=== PATIENT | female | born 1965 | race Caucasian/White ===

== ENCOUNTER 2019-06-18 07:57 | Inpatient (IN) | payer OTHER ==
[2019-06-18] MEDS ORDERED: FENTANYL CITR 100 MCG/2 ML ONE (08:16)
[2019-06-18 08:22] LABS: Absolute Lymphocytes (CBC) 2.3 K/uL (0.7-4.9); Basophils % 0.6 % (0-1.3); Hematocrit 45.9 % (36.0-45.0); Lymphocytes % 30.3 % (15.3-44.8); MPV 11.4 fL (7.6-11.3); RBC Red Blood Cell Count 4.97 M/uL (3.86-4.86)
[2019-06-18 08:24] LABS: Protime INR 1.6
--- NOTE | 2019-06-18 08:32 | RAD REPORT ---
EXAM DESCRIPTION: RAD - Chest Single View - 06/18/2019 8:27 am CLINICAL HISTORY: epigastric pain;Chest pain Chest pain. COMPARISON: No comparisons FINDINGS: Portable technique limits examination quality. Mild interstitial pulmonary edema suspected. The heart is mildly enlarged in size. No displaced fract ures. IMPRESSION: Mild CHF.
[2019-06-18 08:40] LABS: ALT/SGPT 185 U/L (12-78); AST/SGOT 130 U/L (15-37); Albumin 3.6 g/dL (3.4-5.0); Alkaline Phosphatase 107 U/L (45-117); BUN Blood Urea Nitrogen 15 mg/dL (7-18); Bicarbonate 25 mmol/L (21-32); Bilirubin Direct 0.5 mg/dL (0-0.2); Bilirubin Total 1.6 mg/dL (0.2-1.0); Glucose Level 114 mg/dL (74-106); Lipase 84 U/L (73-393); NT PRO-BNP 4327 pg/mL (<125); Potassium 4.5 mmol/L (3.5-5.1); Sodium Level 143 mmol/L (136-145); Troponin (Emerg Dept Use Only) < 0.02 ng/mL (0.0-0.045)
[2019-06-18] MEDS ORDERED: METOPROLOL TAR 25 MG TAB ONE (08:53)
[2019-06-18] MEDS ORDERED: ASPIRIN 81 MG CHEWABLE TABLET ONE (08:53)
--- NOTE | 2019-06-18 09:30 | RAD REPORT ---
EXAM DESCRIPTION: US - Abdomen Exam Limited - 06/18/2019 8:59 am CLINICAL HISTORY: EPIGASTRIC PAIN COMPARISON: No comparisons FINDINGS: The gallbladder demonstrates no gallstones. The gallbladder wall is thickened measuring up to 5 mm. Trace pericholecystic fluid also noted. The common bile duct is normal measuring 4 mm. The liver demonstrates no findings of intrahepatic biliary dilatation. IMPRESSION: Gallbladder wall thickening and trace pericholecystic fluid is seen without evidence of a gallstone. This may be secondary to hepatitis, hypoalbuminemia or chronic cholecystitis.
[2019-06-18] MEDS ORDERED: CEFTRIAXONE/SWI 1gm 1 GM/10 ML SYR ONE (11:04)
--- NOTE | 2019-06-18 12:01 | RAD REPORT ---
EXAM DESCRIPTION: MRICholangiogram06/18/2019 11:38 am CLINICAL HISTORY: Abdominal pain COMPARISON: June 18, 2019 ultrasound TECHNIQUE: Magnetic resonance cholangiogram was performed. 3D Mip reconstruction performed FINDINGS: A filling defect within the gallbladder is not seen. Gallbladder wall is thickened with mi nimal pericholecystic fluid The biliary tree is normal caliber without a filling defect. Pancreatic duct is normal caliber Small right pleural effusion IMPRESSION: Thickened gallbladder wall with minimal pericholecystic fluid. This may indicate acalcul ous cholecystitis. Hypoalbuminemia can also result in this appearance
--- NOTE | 2019-06-18 12:11 | ER ---
Nurse's Notes [facility] Name: Michelle Kelly Age: 54 yrs Sex: Female : 1965 Arrival Date: 06/18/2019 Time: 07:58 Bed 4 Private MD: Diagnosis: Cholecystitis Presentation: 06/18 08:08 Presenting complaint: Patient states: epigastric pain radiating up into chest and to iw left shoulder since yesterday, got bad last night, not getting any better today, also feels SOB, pain described as pressure 10/10, gets better when lying back, c/o nausea no vomiting, hx of afib. 08:08 Acuity: MILLIE 2 iw 08:09 Transition of care: patient was not received from another setting of care. Onset of sv symptoms was June 17, 2019. Risk Assessment: Do you want to hurt yourself or someone else? Patient reports no desire to harm self or others. Initial Sepsis Screen: Does the patient meet any 2 criteria? No. Patient's initial sepsis screen is negative. Does the patient have a suspected source of infection? No. Patient's initial sepsis screen is negative. Care prior to arrival: None. 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 - Social history:: Smoking status: Patient/guardian denies using tobacco. - Ebola Screening: : Patient negative for fever greater than or equal to 101.5 degrees Fahrenheit, and additional compatible Ebola Virus Disease symptoms Patient denies exposure to infectious person Patient denies travel to an Ebola-affected area in the 21 days before illness onset No symptoms or risks identified at this time. Screenin:08 Abuse screen: Denies threats or abuse. Denies injuries from another. Nutritional sv screening: No deficits noted. Tuberculosis screening: No symptoms or risk factors identified. Fall Risk None identified. Assessment: 08:05 Also complains of shortness of breath. General: Appears in no apparent distress. sv uncomfortable, well developed, Behavior is cooperative, appropriate for age, anxious. Pain: Complains of pain in anterior aspect of left upper chest, xyphoid area, mid-sternal area and epigastric area Pain does not radiate. Pain currently is 8 out of 10 on a pain scale. Quality of pain is described as pressure, Pain began 1 day ago. Is continuous, Noted to be guarding, Also complains of strain on relationship. Neuro: Level of Consciousness is awake, alert, obeys commands, Oriented to person, place, time, situation, Moves all extremities. Full function Gait is steady. Cardiovascular: Patient's skin is warm and dry. Pulses are 3+ in right radial artery and left radial artery Rhythm is atrial fibrillation with rapid ventricular response. Respiratory: Airway is patent Respiratory effort is even, labored, Respiratory pattern is symmetrical, tachypnea. Derm: Skin is pink, warm \T\ dry. Musculoskeletal: Range of motion: intact in all extremities. 08:55 Reassessment: Patient appears in no apparent distress at this time. No changes from sv previously documented assessment. Patient and/or family updated on plan of care and expected duration. Pain level reassessed. Patient is alert, oriented x 3, equal unlabored respirations, skin warm/dry/pink. 09:08 Reassessment: US complete. sv 10:25 Reassessment: Patient appears in no apparent distress at this time. Patient and/or sv family updated on plan of care and expected duration. Pain level reassessed. Patient is alert, oriented x 3, equal unlabored respirations, skin warm/dry/pink. 11:48 Reassessment: Patient is alert, oriented x 3, equal unlabored respirations, skin aa5 warm/dry/pink. Pt back from CT, pt notified of wait time for results. . 13:00 Reassessment: Patient appears in no apparent distress at this time. Patient and/or sv family updated on plan of care and expected duration. Pain level reassessed. Patient is alert, oriented x 3, equal unlabored respirations, skin warm/dry/pink. 13:59 Reassessment: Nurse to call back for report. sv 14:20 Reassessment: Patient appears in no apparent distress at this time. Patient and/or sv family updated on plan of care and expected duration. Pain level reassessed. Patient is alert, oriented x 3, equal unlabored respirations, skin warm/dry/pink. Vital Signs: 08:14 BP 119 / 92; Pulse 134; Resp 20 S; Pulse Ox 98% on R/A; Weight 90.72 kg; Height 5 ft. 4 iw in. (162.56 cm); Pain 8/10; 08:54 BP 122 / 106; Pulse 116; Resp 17; Pulse Ox 98% on 2 lpm NC; sv 09:00 Pain 3/10; sv 09:32 BP 120 / 86; Pulse 115; Resp 17; Pulse Ox 97% on 2 lpm NC; sv 10:25 BP 120 / 79; Pulse 104; Resp 19; Pulse Ox 98% on 2 lpm NC; sv 12:05 BP 116 / 98; Pulse 128; Resp 17; Pulse Ox 98% ; sv 13:00 BP 136 / 99; Pulse 130; Resp 18; Pulse Ox 98% on 2 lpm NC; sv 13:49 BP 120 / 86; Pulse 117; Resp 23; Pulse Ox 95% on 2 lpm NC; sv 08:14 Body Mass Index 34.33 (90.72 kg, 162.56 cm) iw ED Course: 07:58 Patient arrived in ED. as 07:59 Hakeem Shaw PA is PHCP. cp 07:59 Daniel Adler MD is Attending Physician. cp 08:05 Inserted saline lock: 20 gauge in right forearm, using aseptic technique. Blood sv collected. Flushed right forearm with 5 ml normal saline. Oxygen administration via nasal cannula \T\ 2L/min. 08:05 Patient has correct armband on for positive identification. Placed in gown. Bed in low sv position. Call light in reach. Adult w/ patient. monitoring tech on. Pulse ox on. NIBP on. Door closed. Head of bed elevated. 08:05 Arm band placed on. sv 08:06 Oanh Valdovinos, JOVAN is Primary Nurse. sv 08:09 EKG done, by marketing technology specialist. reviewed by Hakeem ARANDA. at1 08:13 Triage completed. iw 08:18 X-ray(s) taken. sv 08:20 XRAY Chest (1 view) Sent. sv 08:24 XRAY Chest (1 view) In Process Unspecified. EDMS 09:00 US Abdomen Limited: RUQ/epigastric area In Process Unspecified. EDMS 11:32 Cholangiogram In Process Unspecified. EDMS 12:10 Jennifer Harmon MD is Hospitalizing Provider. cp 13:49 No provider procedures requiring assistance completed. Patient admitted, IV remains in sv place. intact. Administered Medications: 08:18 Drug: fentaNYL (PF) 25 mcg {Note: RASS1.} Route: IVP; Site: right forearm; sv 09:00 Follow up: Pain 3/10 Adult; Response: No adverse reaction; RASS: Alert and Calm (0) sv 08:54 Drug: Metoprolol 25 mg Route: PO; sv 09:36 Follow up: Response: No adverse reaction sv 08:54 Drug: Aspirin Chewable Tablet 324 mg Route: PO; sv 09:36 Follow up: Response: No adverse reaction sv 10:57 CANCELLED (Physician Discretion): Rocephin - (cefTRIAXone) 1 grams IVPB once over 30 cp mins; (mix in 50 mL NS) 11:48 Drug: Rocephin 1 grams Route: IV; Rate: calculated rate; Site: right forearm; aa5 11:50 Follow up: Response: No adverse reaction; IV Status: Completed infusion; IV Intake: 10mlsv 14:15 CANCELLED (not needed): fentaNYL (PF) 25 mcg IVP once; RASS on ADMIN: Combtv4, Very sv Agttd3, Agttd2, Rstlss1, AlertClm0, Drwsy-1, Lt Sdtn-2, Mod Sdtn-3, Dp Sdtn-4, UnArsble-5 Intake: 11:50 IV: 10ml; Total: 10ml. sv Outcome: 12:11 Decision to Hospitalize by Provider. cp 14:19 Admitted to Tele accompanied by tech, via wheelchair, room 232, with oxygen, with sv chart, Report called to Carolyn ALDANA 14:19 Condition: stable 14:19 Instructed on the need for admit. 14:45 Patient left the ED. sv Signatures: Dispatcher [employer] EDMS Oanh Valdovinos RN RN sv Martinez, Amelia as Williams, Irene, RN RN Tika Smith RN RN aa5 Amira Che, fall internship EKG Tat1 Hakeem Shaw PA PA cp Corrections: (The following items were deleted from the chart) 17:22 15:15 Patient left the ED. sv sv
--- NOTE | 2019-06-18 12:12 | EDPHYS ---
Physician Documentation [facility] Name: Michelle Kelly Age: 54 yrs Sex: Female : 1965 Arrival Date: 06/18/2019 Time: 07:58 Bed 4 Private MD: ED Physician Daniel Adler HPI: 06/18 08:15 This 54 yrs old Female presents to ER via Wheelchair with complaints of Chest cp Pain. 08:15 The patient presents with abdominal pain in the epigastric area. cp 08:15 Onset: The symptoms/episode began/occurred yesterday, and became worse today. The cp symptoms radiate to chest. Associated signs and symptoms: Pertinent positives: nausea, Pertinent negatives: blood in stools, constipation, diarrhea, dysuria, fever, headache, palpitations, active vomiting. 08:15 The symptoms are described as pressure. Modifying factors: The symptoms are alleviated cp by nothing, the symptoms are aggravated by movement. Severity of pain: in the emergency department the pain is a 8 / 10. 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 - Social history:: Smoking status: Patient/guardian denies using tobacco. - Ebola Screening: : Patient negative for fever greater than or equal to 101.5 degrees Fahrenheit, and additional compatible Ebola Virus Disease symptoms Patient denies exposure to infectious person Patient denies travel to an Ebola-affected area in the 21 days before illness onset No symptoms or risks identified at this time. ROS: 08:20 Constitutional: Negative for body aches, chills, fever, poor PO intake. cp 08:20 Eyes: Negative for injury, pain, redness, and discharge. cp 08:20 ENT: Negative for drainage from ear(s), ear pain, sore throat, difficulty swallowing, difficulty handling secretions. 08:20 Cardiovascular: Positive for chest pain, Negative for edema, palpitations. 08:20 Respiratory: Positive for shortness of breath, Negative for cough, wheezing. 08:20 Abdomen/GI: Positive for abdominal pain, nausea, of the epigastric area, Negative for vomiting, diarrhea, constipation, black/tarry stool, rectal bleeding. 08:20 Back: Negative for pain at rest, pain with movement. 08:20 : Negative for urinary symptoms. 08:20 Skin: Negative for rash. 08:20 Neuro: Negative for altered mental status, dizziness, headache, numbness, syncope, weakness. 08:20 All other systems are negative. Exam: 08:15 ECG was reviewed by the Attending Physician. cp 08:25 Constitutional: The patient appears in no acute distress, alert, awake, cp non-diaphoretic, non-toxic, well developed, well nourished, uncomfortable. 08:25 Head/Face: Normocephalic, atraumatic. Eyes: Pupils equal round and reactive to light, cp extra-ocular motions intact. Lids and lashes normal. Conjunctiva and sclera are non-icteric and not injected. Cornea within normal limits. Periorbital areas with no swelling, redness, or edema. ENT: Nares patent. No nasal discharge, no septal abnormalities noted. Tympanic membranes are normal and external auditory canals are clear. Oropharynx with no redness, swelling, or masses, exudates, or evidence of obstruction, uvula midline. Mucous membranes moist. Neck: Trachea midline, no thyromegaly or masses palpated, and no cervical lymphadenopathy. Supple, full range of motion without nuchal rigidity, or vertebral point tenderness. No Meningismus. Chest/axilla: Normal chest wall appearance and motion. Nontender with no deformity. No lesions are appreciated. 08:25 Cardiovascular: Rate: tachycardic, Rhythm: irregularly irregular, Edema: is not appreciated, JVD: is not appreciated. 08:25 Respiratory: the patient does not display signs of respiratory distress, Respirations: normal, no use of accessory muscles, no retractions, no splinting, no tachypnea, labored breathing, is not present, Breath sounds: are clear throughout, no decreased breath sounds, no stridor, no wheezing. 08:25 Abdomen/GI: Inspection: abdomen appears normal, Bowel sounds: active, all quadrants, Palpation: soft, in all quadrants, severe abdominal tenderness, in the epigastric area, voluntary guarding, is elicited in the epigastric area. 08:25 Skin: no rash present. 08:25 Neuro: Orientation: to person, place \T\ time. Mentation: is normal, Cerebellar function: is grossly normal, Motor: moves all fours, strength is normal, Sensation: is normal. Vital Signs: 08:14 BP 119 / 92; Pulse 134; Resp 20 S; Pulse Ox 98% on R/A; Weight 90.72 kg; Height 5 ft. 4 iw in. (162.56 cm); Pain 8/10; 08:54 BP 122 / 106; Pulse 116; Resp 17; Pulse Ox 98% on 2 lpm NC; sv 09:00 Pain 3/10; sv 09:32 BP 120 / 86; Pulse 115; Resp 17; Pulse Ox 97% on 2 lpm NC; sv 10:25 BP 120 / 79; Pulse 104; Resp 19; Pulse Ox 98% on 2 lpm NC; sv 12:05 BP 116 / 98; Pulse 128; Resp 17; Pulse Ox 98% ; sv 13:00 BP 136 / 99; Pulse 130; Resp 18; Pulse Ox 98% on 2 lpm NC; sv 13:49 BP 120 / 86; Pulse 117; Resp 23; Pulse Ox 95% on 2 lpm NC; sv 08:14 Body Mass Index 34.33 (90.72 kg, 162.56 cm) iw MDM: 08:05 Patient medically screened. cp 08:30 Differential diagnosis: cholecystitis, Cholelithiasis, gastritis, gastroesophageal cp reflux disease, pancreatitis, Peptic Ulcer Disease, Perf. Duodenal Ulcer, Perf. Gastric Ulcer, acute PR. 09:41 Physician consultation: Justus Luu MD was called at 09:42, left message on voicemail. 09:50 Physician consultation: Justus Luu MD was contacted at 09:50, regarding consult, cp patient's condition, requests MRCP and if normal will consult on patient, otherwise if MRCP is unavailable, patient is to be transferred due to GI services being unavailable. 10:00 Data reviewed: vital signs, nurses notes, lab test result(s), EKG, radiologic studies, cp ultrasound. 12:09 Physician consultation: Jennifer Harmon MD was called at 12:10, was contacted at 12:10, regarding admission, to the telemetry unit. patient's condition. 06/18 08:06 Order name: Basic Metabolic Panel; Complete Time: 08:44 cp 06/18 08:44 Interpretation: Normal except: CL 110; GLUC 114; GFR 60. cp 06/18 08:06 Order name: CBC with Diff; Complete Time: 08:36 cp 06/18 08:36 Interpretation: Normal except: RBC 4.97; HGB 15.1; HCT 45.9; MPV 11.4. cp 06/18 08:06 Order name: LFT's; Complete Time: 08:44 cp 06/18 08:44 Interpretation: Normal except: AST 130; ALT 185; BILIT 1.6; BILID 0.5. cp 06/18 08:06 Order name: Magnesium; Complete Time: 08:44 cp 06/18 08:06 Order name: NT PRO-BNP; Complete Time: 08:44 cp 06/18 08:06 Order name: PT-INR; Complete Time: 08:44 cp 06/18 08:06 Order name: Troponin (emerg Dept Use Only); Complete Time: 08:44 cp 06/18 08:06 Order name: XRAY Chest (1 view); Complete Time: 08:36 cp 06/18 08:06 Order name: Lipase; Complete Time: 08:44 cp 06/18 08:45 Order name: US Abdomen Limited: RUQ/epigastric area; Complete Time: 09:35 cp 06/18 09:59 Order name: Cholangiogram; Complete Time: 12:07 EDMS 06/18 08:06 Order name: EKG; Complete Time: 08:08 cp 06/18 08:06 Order name: Cardiac monitoring; Complete Time: 08:07 cp 06/18 08:06 Order name: EKG - Nurse/Tech; Complete Time: 08:07 cp 06/18 08:06 Order name: IV Saline Lock; Complete Time: 08:07 cp 06/18 08:06 Order name: Labs collected and sent; Complete Time: 08:07 cp 06/18 08:06 Order name: O2 Per Protocol; Complete Time: 08:07 cp 06/18 08:06 Order name: O2 Sat Monitoring; Complete Time: 08:07 cp 06/18 09:49 Order name: NPO; Complete Time: 09:53 cp 06/18 09:49 Order name: Misc. Order; Complete Time: 09:54 cp EC:15 Rate is 132 beats/min. Rhythm is irregularly irregular. QRS interval is normal. QT cp interval is normal. T waves are Inverted in leads V2, V3. Interpreted by me. Reviewed by me. Administered Medications: 08:18 Drug: fentaNYL (PF) 25 mcg {Note: RASS1.} Route: IVP; Site: right forearm; sv 09:00 Follow up: Pain 3/10 Adult; Response: No adverse reaction; RASS: Alert and Calm (0) sv 08:54 Drug: Metoprolol 25 mg Route: PO; sv 09:36 Follow up: Response: No adverse reaction sv 08:54 Drug: Aspirin Chewable Tablet 324 mg Route: PO; sv 09:36 Follow up: Response: No adverse reaction sv 10:57 CANCELLED (Physician Discretion): Rocephin - (cefTRIAXone) 1 grams IVPB once over 30 cp mins; (mix in 50 mL NS) 11:48 Drug: Rocephin 1 grams Route: IV; Rate: calculated rate; Site: right forearm; aa5 11:50 Follow up: Response: No adverse reaction; IV Status: Completed infusion; IV Intake: 10mlsv 14:15 CANCELLED (not needed): fentaNYL (PF) 25 mcg IVP once; RASS on ADMIN: Combtv4, Very sv Agttd3, Agttd2, Rstlss1, AlertClm0, Drwsy-1, Lt Sdtn-2, Mod Sdtn-3, Dp Sdtn-4, UnArsble-5 Disposition: 15:45 Co-signature as Attending Physician, Daniel Adler MD I agree with the assessment and kdr plan of care. Disposition: 06/18/19 12:11 Hospitalization ordered by Jennifer Harmon for Inpatient Admission. Preliminary diagnosis is Cholecystitis. - Bed requested for Telemetry/MedSurg (Inpatient). - Status is Inpatient Admission. sv - Condition is Stable. - Problem is new. - Symptoms have improved. UTI on Admission? No Signatures: Dispatcher [employer] Oanh Guthrie RN RN sv Woody, Diana, RN RN dw Rittger, Kevin, MD MD [facility] Emily Roach RN RN Tika Smith RN RN aa5 Hakeem Shaw PA PA cp Corrections: (The following items were deleted from the chart) 10:57 10:45 Rocephin - (cefTRIAXone) 1 grams IVPB once over 30 mins; (mix in 50 mL NS) cp ordered. cp 10:57 10:45 Rocephin - (cefTRIAXone) 1 grams IVPB once over 30 mins; (mix in 50 mL NS) cp ordered. sv 13:46 12:11 Hospitalization Ordered by Jennifer Harmon MD for Inpatient Admission. Preliminary dw diagnosis is Cholecystitis. Bed requested for Telemetry/MedSurg (Inpatient). Status is Inpatient Admission. Condition is Stable. Problem is new. Symptoms have improved. UTI on Admission? No. cp 14:15 08:10 fentaNYL (PF) 25 mcg IVP once; RASS on ADMIN: Combtv4, Very Agttd3, Agttd2, sv Rstlss1, AlertClm0, Drwsy-1, Lt Sdtn-2, Mod Sdtn-3, Dp Sdtn-4, UnArsble-5 ordered. cp 14:15 14:15 fentaNYL (PF) 25 mcg IVP once; RASS on ADMIN: Combtv4, Very Agttd3, Agttd2, sv Rstlss1, AlertClm0, Drwsy-1, Lt Sdtn-2, Mod Sdtn-3, Dp Sdtn-4, UnArsble-5 ordered. sv 15:15 13:46 06/18/2019 12:11 Hospitalization Ordered by Jennifer Harmon MD for Inpatient sv Admission. Preliminary diagnosis is Cholecystitis. Bed requested for Telemetry/MedSurg (Inpatient). Status is Inpatient Admission. Condition is Stable. Problem is new. Symptoms have improved. UTI on Admission? No. dw
[2019-06-18] MEDS ORDERED: ONDANSETRON 4 MG/2 ML VIAL IV PRN (14:44)
[2019-06-18 15:08] VITALS: BMI 34.8
--- NOTE | 2019-06-18 15:30 | P.HP ---
Patient History Date of Service: 06/18/19 Reason for admission: Epigastric pain History of Present Illness: This is a 54-year-old female with past medical history of atrophic relation admitted for epigastric pain. Per patient, she started with sharp/pressure- like epigastric pain for the past 1- 2 days that has been progressively worsening. She describes it as a pressure and sharp like pain that starts in the epigastric region and radiates to the sides as well as into the chest sometimes . Patient states that she could not lay on her stomach or her left- sided as this made her pain worse. Food also exacerbated her pain. No alleviating factors. She does report small bowel movement this morning. Reports that this pain is associated with nausea. She denies any fevers, chills , headache, vision changes, diarrhea/constipation, shortness breath, or complaints. As the pain was getting worse, patient called her vocal artist because she thought this was secondary to her heart. She was told to come to the ER. In the pain did not improve therefore patient was read to the ER by her . In the ER, blood pressure was 119/92, heart rate of 134, respirations of 20, 90 % on room air. She has a BMI of 34.33. Her labs were fairly unremarkable except for elevated total bilirubin to 1.6, elevated diary bilirubin to 0.5 and elevated AST/and 130/185 respectively. Her pro BNP was also elevated to 4327. Her chest x-ray was consistent with mild CHF pattern. Her abdominal stone showed gallbladder wall thickening and trace pericholecystic fluid without any evidence of gallstones. MRCP was done, which showed thickened gallbladder, possibility of acalculous cholecystitis. Move in the ER, she received fentanyl , oral metoprolol, aspirin 325 mg along with Rocephin. That the time of my exam, she was alert oriented x3, in no acute distress and hemodynamically stable. Allergies No Known Allergies Allergy (Unverified 06/18/19 14:38) Home medications list reviewed: Yes Home Medications: Acetaminophen [Tylenol] 650 mg PO Q8HP PRN 06/18/19 Loratadine [Claritin] 10 mg PO DAILY PRN 06/18/19 Metoprolol Succinate [Toprol Xl] 25 mg PO TID 06/18/19 Rivaroxaban [Xarelto] 20 mg PO DAILY AT SUPPER 06/18/19 - Past Medical/Surgical History Has patient received pneumonia vaccine in the past: No Diabetic: No -: A-FIB -: Tubal Ligation -: Lt overian cyst removed - Social History Smoking Status: Never smoker Alcohol use: No CD- Drugs: No Caffeine use: No Place of Residence: Home Review of Systems 10-point ROS is otherwise unremarkable Physical Examination - Physical Exam General: Alert, In no apparent distress, Oriented x3 HEENT: Atraumatic, PERRLA, Mucous membr. moist/pink, EOMI, Sclerae nonicteric Neck: Supple, 2+ carotid pulse no bruit, No LAD, Without JVD or thyroid abnormality Respiratory: Clear to auscultation bilaterally, Normal air movement Cardiovascular: Regular rate/rhythm, Normal S1 S2 Gastrointestinal: Normal bowel sounds, Tenderness Musculoskeletal: No tenderness Integumentary: No rashes Neurological: Normal gait, Normal speech, Normal strength at 5/5 x4 extr, Normal tone, Normal affect Lymphatics: No axilla or inguinal lymphadenopathy - Studies Laboratory Data (last 24 hrs) 06/18/19 08:05: PT 18.5 H, INR 1.60 06/18/19 08:05: WBC 7.7, Hgb 15.1 H, Hct 45.9 H, Plt Count 155 06/18/19 08:05: Sodium 143, Potassium 4.5, BUN 15, Creatinine 0.97, Glucose 114 H, Magnesium 2.0, Total Bilirubin 1.6 H, AST 130 H, ALT 185 H, Alkaline Phosphatase 107, Lipase 84 Assessment and Plan - Problems (Diagnosis) (1) Epigastric pain Current Visit: Yes Status: Acute (2) Cholecystitis Current Visit: Yes Status: Acute Plan: Abdominal ultrasound and MRCP with evidence of thickened gallbladder wall and trace pericholecystic fluid without any evidence of gallstones, possibility of acalculous cholecystitis. -Keep NPO -Gentle hydration with IV fluids. Will avoid over hydration due to CHF pattern on chest x-ray. -general surgery consulted, recommendations appreciated. -hold anticoagulation in anticipation of surgery -monitor labs (3) Atrial fibrillation Current Visit: Yes Status: Acute Plan: Stable, will restart home medications- Toprol. Hold oral anticoagulation in anticipation for surgery. Qualifiers: Atrial fibrillation type: paroxysmal Qualified Code(s): I48.0 - Paroxysmal atrial fibrillation (4) Elevated LFTs Current Visit: Yes Status: Acute Plan: Likely secondary to cholecystitis. Will continue to monitor via labs. -if continues to be elevated, will go ahead and get hepatitis panel. (5) Obesity (BMI 30.0-34.9) Current Visit: No Status: Chronic - Plan DVT prophylaxis: Hold oral anticoagulation; SCDs GI prophylaxis: Protonix Diet: NPO Disposition: Pending symptomatic improvement surgical evaluation. Discharge Plan: Home Plan to discharge in: Greater than 2 days - Advance Directives Does patient have a Living Will: No Does patient have a Durable POA for Healthcare: No Time Spent Managing Pts Care (In Minutes): 55
[2019-06-18] MEDS ORDERED: FENTANYL CITR 100 MCG/2 ML IV PRN (15:33)
[2019-06-18] MEDS ORDERED: METOPROLOL XL 25 MG TAB PO SCH (16:00)
[2019-06-18] MEDS: METOPROLOL 25 MG PO SCH (22:11)
[2019-06-18 23:54] LABS: Urine Appearance CLEAR; Urine Bilirubin NEGATIVE (NEG); Urine Blood 3+ (NEG); Urine Color YELLOW; Urine Glucose NEGATIVE (NEG); Urine Protein NEGATIVE (NEG); Urine Urobilinogen 0.2 mg/dL (0.2-1.0); Urine pH 5.5 (5.0-7.0)
[2019-06-18 23:55] LABS: Urine Microscopic Reflex ORDER UMIC
[2019-06-19 00:48] LABS: Urine Bacteria <20 /HPF (<20); Urine Culture Reflex Order NOT NEEDED; Urine RBC <5 /HPF (NONE SEEN)
[2019-06-19 05:53] LABS: Albumin 3.2 g/dL (3.4-5.0); Bilirubin Total 1.2 mg/dL (0.2-1.0); Protein, Total 6.1 g/dL (6.4-8.2)
[2019-06-19 05:54] LABS: Absolute Lymphocytes (CBC) 2.1 K/uL (0.7-4.9); Basophils % 0.7 % (0-1.3); Hematocrit 41.1 % (36.0-45.0); Lymphocytes % 30.5 % (15.3-44.8); MPV 11.8 fL (7.6-11.3); RBC Red Blood Cell Count 4.46 M/uL (3.86-4.86)
[2019-06-19] MEDS: METOPROLOL 25 MG PO SCH ×3 (09:59→22:00)
--- NOTE | 2019-06-19 10:07 | P.PN ---
Subjective Date of Service: 06/19/19 Chief Complaint: Epigastric pain Subjective: No C/O voiced, Improving Patient seen and examined at bedside. Chart reviewed and case discussed with nursing staff and Dr. Luu. Patient not complaining of any pain this am. No acute events noted overnight. Review of Systems 10-point ROS is otherwise unremarkable Physical Examination - Vital Signs Temperature: 97.2 F Blood Pressure: 126/82 Pulse: 94 Respirations: 20 Pulse Ox (%): 98 - Physical Exam General: Alert, In no apparent distress, Oriented x3 HEENT: Atraumatic, PERRLA, EOMI Neck: Supple, JVD not distended Respiratory: Clear to auscultation bilaterally, Normal air movement Cardiovascular: Regular rate/rhythm, Normal S1 S2 Gastrointestinal: Normal bowel sounds, No tenderness Musculoskeletal: No tenderness Integumentary: No rashes Neurological: Normal speech, Normal tone, Normal affect Lymphatics: No axilla or inguinal lymphadenopathy Assessment And Plan - Current Problems (Diagnosis) (1) Epigastric pain Current Visit: Yes Status: Acute (2) Cholecystitis Current Visit: Yes Status: Acute Plan: Abdominal ultrasound and MRCP with evidence of thickened gallbladder wall and trace pericholecystic fluid without any evidence of gallstones, possibility of acalculous cholecystitis. -Symptoms improved. Will start CLD, advance as tolerated. If patient not tolerating PO, will consider surgical intervention tomorrow. -Gentle hydration with IV fluids. Will avoid over hydration due to CHF pattern on chest x-ray. -general surgery consulted, recommendations appreciated. -hold anticoagulation in anticipation of surgery -monitor labs (3) Atrial fibrillation Current Visit: Yes Status: Acute Plan: Stable, will restart home medications- Toprol. Hold oral anticoagulation in anticipation for surgery. Qualifiers: Atrial fibrillation type: paroxysmal Qualified Code(s): I48.0 - Paroxysmal atrial fibrillation (4) Elevated LFTs Current Visit: Yes Status: Acute Plan: Likely secondary to cholecystitis. Improving. -Will continue to monitor via labs. -if continues to be elevated, will go ahead and get hepatitis panel. (5) Obesity (BMI 30.0-34.9) Current Visit: No Status: Chronic - Plan DVT prophylaxis: Hold oral anticoagulation; SCDs GI prophylaxis: Protonix Diet: CLD, advance as tolerated. Disposition: Pending symptomatic improvement and possible surgical evaluation.
--- NOTE | 2019-06-19 12:15 | RAD REPORT ---
EXAM DESCRIPTION: RAD - Chest Single View - 06/19/2019 11:14 am CLINICAL HISTORY: sob Chest pain. COMPARISON: Chest Single View dated 06/18/2019 FINDINGS: Portable technique limits examination quality. The lungs are grossly clear. The heart is mildly enlarged in size. No displaced fractures. IMPRESSION: No acute intrathoracic process suspected.
[2019-06-19 21:26] VITALS: O2SAT 95
[2019-06-20 06:04] LABS: Absolute Lymphocytes (CBC) 2.2 K/uL (0.7-4.9); Basophils % 0.9 % (0-1.3); Hematocrit 43.6 % (36.0-45.0); Lymphocytes % 34.5 % (15.3-44.8); MPV 11.1 fL (7.6-11.3); RBC Red Blood Cell Count 4.69 M/uL (3.86-4.86)
[2019-06-20 06:22] LABS: Albumin 3.5 g/dL (3.4-5.0); Bilirubin Total 1.2 mg/dL (0.2-1.0); Potassium 3.5 mmol/L (3.5-5.1); Protein, Total 6.7 g/dL (6.4-8.2)
[2019-06-20] MEDS: METOPROLOL 25 MG PO SCH (07:53)
--- NOTE | 2019-06-20 08:43 | EKG ---
Test Date: 2019-06-18 Test Time: 08:07:43 Marine Plumber: LORENA MEASUREMENT RESULTS: Intervals: Rate: 132 NM: QRSD: 82 QT: 306 QTc: 453 [place]: P: NM: QRS: 23 T: 14 INTERPRETIVE STATEMENTS: Atrial fibrillation with rapid ventricular response Low voltage QRS ST & T wave abnormality, consider anterior ischemia or digitalis effect Abnormal ECG No previous ECG available for comparison Electronically Signed On 06-20-19 08:41:51 CDT by Ian Rosas
[2019-06-20] MEDS: ENOXAPARIN 100 MG/ML SYR SQ SCH ×2 (09:08→20:22)
--- NOTE | 2019-06-20 10:26 | CON ---
This a 54-year-old woman, Mrs. Kelly has been in atrial fibrillation for probably about 2 months. S he had been on metoprolol and Xarelto until she came into the hospital on Sunday. At that point, bot h those medicines were stopped. She was found to have acalculous cholecystitis. I am asked to see h er. She has been here already 48 hours and they were actually quite angry that it was not here soone r, although I was not notified until this morning by routine notification of consult method. The pat eyal has no previous history of heart disease. Her atrial fibrillation is new onset. She does not h ave diabetes or hypertension or dyslipidemia. She does not use tobacco. No illegal drugs. She has had a noninvasive workup for ischemic heart disease, valvular heart disease in my office, that is nor mal. Physical Examination: Vital Signs: 5 feet 4 inches, 196 pounds. HEENT: Normal. Lungs: Clear. Cardiac: Exam normal. Abdomen: Soft. Extremities: Mild edema. Distal pulses normal. Impression: The patient has atrial fibrillation. She has been anticoagulated long enough. We will give Lovenox now and tomorrow and we will plan on doing a cardioversion tomorrow. TYREE/ZONIA Voice ID: [id number] Report ID: [id number]
--- NOTE | 2019-06-20 10:48 | P.PN ---
Subjective Date of Service: 06/20/19 Chief Complaint: Epigastric pain Subjective: Improving Patient seen and examined at bedside. Chart reviewed and case discussed with nursing staff and Dr. Luu. Patient not complaining of any pain this am. No acute events noted overnight. Tolerating clear liquid diet. Review of Systems 10-point ROS is otherwise unremarkable Physical Examination - Vital Signs Temperature: 98.0 F Blood Pressure: 123/88 Pulse: 89 Respirations: 17 Pulse Ox (%): 97 - Physical Exam General: Alert, In no apparent distress, Oriented x3 HEENT: Atraumatic, PERRLA, EOMI Neck: Supple, JVD not distended Respiratory: Clear to auscultation bilaterally, Normal air movement Cardiovascular: Normal S1 S2, Irregular heart rate/rhythm Gastrointestinal: Normal bowel sounds, No tenderness Musculoskeletal: No tenderness Integumentary: No rashes Neurological: Normal speech, Normal tone, Normal affect Lymphatics: No axilla or inguinal lymphadenopathy Assessment And Plan - Current Problems (Diagnosis) (1) Epigastric pain Current Visit: Yes Status: Acute (2) Cholecystitis Current Visit: Yes Status: Acute Plan: Abdominal ultrasound and MRCP with evidence of thickened gallbladder wall and trace pericholecystic fluid without any evidence of gallstones, possibility of acalculous cholecystitis. She may have also passed a stone. -Symptoms improved. Will start CLD, advance as tolerated. She is tolerating a PO diet, and symptoms have improved. She may not need surgical intervention at this time. -Gentle hydration with IV fluids. -general surgery consulted, recommendations appreciated. -monitor labs (3) Atrial fibrillation Current Visit: Yes Status: Acute Plan: Cardiology consulted, recommendations appreciated. - Metoprolol discontinued, started sotalol and lovenox for anticoagulation -Plan for cardioversion tomorrow. Qualifiers: Atrial fibrillation type: paroxysmal Qualified Code(s): I48.0 - Paroxysmal atrial fibrillation (4) Elevated LFTs Current Visit: Yes Status: Acute Plan: Likely secondary to cholecystitis nvs passing a stone. Improving. -Will continue to monitor via labs. -if continues to be elevated, will go ahead and get hepatitis panel. (5) Obesity (BMI 30.0-34.9) Current Visit: No Status: Chronic - Plan DVT prophylaxis: Hold oral anticoagulation; SCDs GI prophylaxis: Protonix Diet: CLD, advance as tolerated. Disposition: Pending cardioversion tomorrow.
[2019-06-20 10:58] LABS: Platelet Estimate ADEQ; Platelets, Giant FEW; Urine White Blood Cell Casts 0
[2019-06-20 10:59] LABS: Blood Morphology Comment NOT SEEN (NOT SEEN)
[2019-06-20] MEDS ORDERED: METOPROLOL 25 MG PO SCH (14:00)
[2019-06-20] MEDS ORDERED: HOME MED 1 EA UNK PO SCH (14:00)
--- NOTE | 2019-06-20 14:23 | P.CNS ---
Date of Consult: 06/18/19 Chief Complaint: Epigastric pain, acute cholecystitis, Increase liver enzymes History of Present Illness: 54 y/o with 2 day h/o epigastric and RUW pain radiation to her back associated with nausea and bloating. No recent traveling out of the country , no family sick at home. Allergies No Known Allergies Allergy (Unverified 06/18/19 14:38) Home Medications: Acetaminophen [Tylenol] 650 mg PO Q8HP PRN 06/18/19 Loratadine [Claritin] 10 mg PO DAILY PRN 06/18/19 Metoprolol Succinate [Toprol Xl] 25 mg PO TID 06/18/19 Rivaroxaban [Xarelto] 20 mg PO DAILY AT SUPPER 06/18/19 - Past Medical/Surgical History Diabetic: No -: A-FIB -: Tubal Ligation -: Lt overian cyst removed - Social History Alcohol use: No CD- Drugs: No Caffeine use: No Place of Residence: Home Review of Systems General: Malaise ENT: Unremarkable Respiratory: Unremarkable Cardiovascular: As per HPI Gastrointestinal: Nausea, Abdominal Pain, Distention, As per HPI Genitourinary: Unremarkable Musculoskeletal: Unremarkable Integumentary: Unremarkable Physical Examination Temp Pulse Resp BP Pulse Ox 98.0 F 89 17 123/88 97 06/20/19 10:57 06/20/19 10:57 06/20/19 10:57 06/20/19 10:57 06/20/19 10:57 General: Alert, In no apparent distress, Oriented x3, Cooperative HEENT: PERRLA, EOMI Neck: Supple Respiratory: Normal air movement Gastrointestinal: Tenderness (RUQ, + [place]) Imagings Data: ultrasound discussed with pt MRCP discussed with pt Conclusions/Impression: cardiac clearence Lap vs open cholecystectomy options discussed with pt and which include but no limited to infection, bleeding, damage to adjacent structures, pancreatitis , bile leak VT even . This may not relieve any symptoms and she may need more than one surgical intervention. Is risk of surgery at this time benefit the risk afer cardiac evaluation, as an alternative, she may try abx and diet modification and do it electively if clinically pt improves. Pt fully explained. npo
[2019-06-20] MEDS: SOTALOL HCL 80 MG TAB PO SCH (17:36)
[2019-06-20] MEDS ORDERED: SOTALOL HCL 80 MG TAB PO SCH (18:00)
[2019-06-21 06:12] LABS: Absolute Lymphocytes (CBC) 2.6 K/uL (0.7-4.9); Hematocrit 40.8 % (36.0-45.0); Lymphocytes % 45.1 % (15.3-44.8); RBC Red Blood Cell Count 4.43 M/uL (3.86-4.86)
[2019-06-21] MEDS: SOTALOL HCL 80 MG TAB PO SCH ×2 (06:14→16:22)
[2019-06-21 06:27] LABS: Albumin 3.2 g/dL (3.4-5.0); Bilirubin Total 0.9 mg/dL (0.2-1.0); Potassium 3.9 mmol/L (3.5-5.1); Protein, Total 6.2 g/dL (6.4-8.2)
[2019-06-21] MEDS: ENOXAPARIN 100 MG/ML SYR SQ SCH (08:22)
[2019-06-21] MEDS ORDERED: MIDAZOLAM HCL 2 MG/2 ML INJ ONE (09:47)
[2019-06-21] MEDS ORDERED: FENTANYL CITR 100 MCG/2 ML ONE (09:54)
[2019-06-21 16:36] VITALS: BP 100/60; TEMP 97.8
[2019-06-21] MEDS ORDERED: RIVAROXABAN 20 MG TABLET PO SCH (17:00)
--- NOTE | 2019-06-21 20:47 | OP ---
Surgeon: Ian Rosas MD Procedure: Direct current cardioversion. Indication: Atrial fibrillation. Procedure In Detail: The patient gave us informed consent. She had been anticoagulated for 3 weeks with Xarelto, 36 hours with Lovenox. She had been treated with Betapace 80 mg twice a day. She was brought to the ICU fasting, sedated with Versed 12.5 mg was used, also 50 mcg of fentanyl. Anterior- posterior paddles were applied to the patient's chest. Three different shocks were given 200, 300, a nd 360 joules. The last one was successful in reverting her rhythm to sinus. Complications from the procedure none. TYREE/ZONIA Voice ID: [id number] Report ID: [id number]
--- NOTE | 2019-06-22 13:19 | P.DS ---
Admission Date: 06/18/19 Discharge Date: 06/21/19 Disposition: ROUTINE DISCHARGE Discharge Condition: GOOD Reason for Admission: Epigastric pain, acute cholecystitis, Increase liver enzymes Consultations: General surgery Cardiology Procedures: 06/21/2019: direct cardioversion - Problems (1) Epigastric pain Status: Acute (2) Cholecystitis Status: Acute (3) Atrial fibrillation Status: Acute Qualifiers: Atrial fibrillation type: paroxysmal Qualified Code(s): I48.0 - Paroxysmal atrial fibrillation (4) Elevated LFTs Status: Acute (5) Obesity (BMI 30.0-34.9) Status: Chronic Brief History of Present Illness: This is a 54-year-old female with past medical history of atrophic relation admitted for epigastric pain. Per patient, she started with sharp/pressure- like epigastric pain for the past 1- 2 days that has been progressively worsening. She describes it as a pressure and sharp like pain that starts in the epigastric region and radiates to the sides as well as into the chest sometimes . Patient states that she could not lay on her stomach or her left- sided as this made her pain worse. Food also exacerbated her pain. No alleviating factors. She does report small bowel movement this morning. Reports that this pain is associated with nausea. She denies any fevers, chills , headache, vision changes, diarrhea/constipation, shortness breath, or complaints. As the pain was getting worse, patient called her canvas worker because she thought this was secondary to her heart. She was told to come to the ER. In the pain did not improve therefore patient was read to the ER by her . In the ER, blood pressure was 119/92, heart rate of 134, respirations of 20, 90 % on room air. She has a BMI of 34.33. Her labs were fairly unremarkable except for elevated total bilirubin to 1.6, elevated diary bilirubin to 0.5 and elevated AST/and 130/185 respectively. Her pro BNP was also elevated to 4327. Her chest x-ray was consistent with mild CHF pattern. Her abdominal stone showed gallbladder wall thickening and trace pericholecystic fluid without any evidence of gallstones. MRCP was done, which showed thickened gallbladder, possibility of acalculous cholecystitis. Move in the ER, she received fentanyl , oral metoprolol, aspirin 325 mg along with Rocephin. That the time of my exam, she was alert oriented x3, in no acute distress and hemodynamically stable. Hospital Course: Patient was admitted for epigastric pain, ultrasound and MRCP with evidence of thickened gallbladder wall trace pericholecystic fluid without any evidence of gallstones. General surgery was consulted. She was kept NPO, with IV fluids. Her symptoms improved, she was able to tolerate clear liquid diet and therefore no emergent/urgent surgical intervention was planned at this time. Her anticoagulation was held in anticipation for surgery. Patient did develop atrial fibrillation with elevated heart rates. It seems that patient had a history of this prior and she is being followed up with cardiology and had a cardioversion planned this week as an outpatient. Since she was here, and no abdominal surgical intervention was planned, cardiology was consulted and patient underwent a cardioversion on June 21, 2019. She tolerated the procedure well and she did convert to normal sinus rhythm post cardioversion. She did well after the procedure. Prior to discharge, she was tolerating an oral diet, was alert oriented x3, hemodynamically stable. Her diagnoses and treatment plan was explained to her, all questions were answered and she verbalized understanding. She was then discharged home in a safe and stable manner after being cleared for discharge by general surgery as well as cardiology. She was discharged on Betapace 80 mg b.i.d. as well as Xarelto 20 mg. She will follow up with general surgery in cardiology as an outpatient. Vital Signs/Physical Exam: Temp Pulse Resp BP Pulse Ox 97.8 F 69 16 100/60 96 06/21/19 16:00 06/21/19 16:00 06/21/19 16:00 06/21/19 16:00 06/21/19 16:00 General: Alert, In no apparent distress HEENT: Atraumatic, PERRLA, EOMI Neck: Supple, JVD not distended Respiratory: Clear to auscultation bilaterally, Normal air movement Cardiovascular: Regular rate/rhythm, Normal S1 S2 Gastrointestinal: Normal bowel sounds, No tenderness Musculoskeletal: No tenderness Integumentary: No rashes Neurological: Normal speech, Normal tone, Normal affect Lymphatics: No axilla or inguinal lymphadenopathy Laboratory Data at Discharge: WBC 5.8 K/uL (4.3-10.9) 06/21/19 05:37 Hgb 13.7 g/dL (12.0-15.0) 06/21/19 05:37 Hct 40.8 % (36.0-45.0) 06/21/19 05:37 Plt Count 140 K/uL (152-406) L 06/21/19 05:37 PT 18.5 SECONDS (9.5-12.5) H 06/18/19 08:05 INR 1.60 06/18/19 08:05 Sodium 142 mmol/L (136-145) 06/21/19 05:37 Potassium 3.9 mmol/L (3.5-5.1) 06/21/19 05:37 BUN 14 mg/dL (7-18) 06/21/19 05:37 Creatinine 0.80 mg/dL (0.55-1.3) 06/21/19 05:37 Glucose 87 mg/dL (74-106) 06/21/19 05:37 Phosphorus 3.0 mg/dL (2.5-4.9) 06/19/19 04:58 Magnesium 2.0 mg/dL (1.8-2.4) 06/18/19 08:05 Total Bilirubin 0.9 mg/dL (0.2-1.0) 06/21/19 05:37 AST 35 U/L (15-37) 06/21/19 05:37 ALT 79 U/L (12-78) H 06/21/19 05:37 Alkaline Phosphatase 83 U/L (45-117) 06/21/19 05:37 Triglycerides 188 mg/dL (<150) H 06/19/19 04:58 Cholesterol 163 mg/dL (<200) 06/19/19 04:58 HDL Cholesterol 29 mg/dL (40-60) L 06/19/19 04:58 Cholesterol/HDL Ratio 5.62 06/19/19 04:58 Lipase 84 U/L (73-393) 06/18/19 08:05 Home Medications: Acetaminophen [Tylenol] 650 mg PO Q8HP PRN 06/18/19 Loratadine [Claritin*] 10 mg PO DAILY PRN 06/18/19 Rivaroxaban [Xarelto] 20 mg PO DAILY AT SUPPER #30 tablet 06/21/19 Sotalol HCl [Betapace*] 80 mg PO BID 6AM 6PM #60 tab 06/21/19 New Medications: Rivaroxaban [Xarelto] 20 mg PO DAILY AT SUPPER #30 tablet Sotalol HCl [Betapace*] 80 mg PO BID 6AM 6PM #60 tab Diet: AHA Activity: Ad aki Followup: Ina Rosas MD [ACTIVE - CAN ADMIT] - 1-2 Weeks Justus Luu MD [ACTIVE - CAN ADMIT] - If your Symptoms Worsen Time spent managing pt's care (in minutes): 55
--- NOTE | 2019-06-24 07:31 | EKG ---
Test Date: 2019-06-21 Test Time: 10:09:42 Manager Medicaid: SIMON MEASUREMENT RESULTS: Intervals: Rate: 60 NC: 162 QRSD: 80 QT: 444 QTc: 444 [place]: P: 39 NC: 162 QRS: 40 T: 9 INTERPRETIVE STATEMENTS: Normal sinus rhythm Possible Left atrial enlargement ST & T wave abnormality, consider anterior ischemia Abnormal ECG Compared to ECG 06/18/2019 08:07:43 Atrial fibrillation no longer present ST (T wave) deviation still present Possible ischemia still present Electronically Signed On 06-24-19 07:30:08 CDT by Ian Rosas
== END 2019-06-21 16:52 | disposition home or self-care (01) | DRG 446 ==
LOC: ER 07:57 → ERHOLD 12:47 → 2ND 14:20 → 3RD-ICU 06-21 09:15 → 2ND 06-21 12:55
PROVIDERS: ADMIT Family Medicine; ATTEND Family Medicine
PROC: 5A2204Z Restoration of Cardiac Rhythm, Single (ICD-10-PCS; principal; 2019-06-21)
DX: K81.0 Acute cholecystitis (principal); I48.0 Paroxysmal atrial fibrillation; R74.8 Abnormal levels of other serum enzymes; E66.9 Obesity, unspecified; Z68.33 Body mass index [BMI] 33.0-33.9, adult
CPT/HCPCS: 36415; 71045; 74181; 76705; 80048; 80053; 80061; 80076; 81003; 81015; 83690; 83735; 83880; 84100; 84484; 85025; 85610; 93005; 94760; 96374; 96375; 99285; J0696; J1650; J2250; J3010